=== PATIENT | female | born 1990 | race Caucasian/White ===

== ENCOUNTER → 2022-12-31 15:18 | Outpatient (CLI) | payer MEDICAID, SELFPAY | PROVIDERS: PCP Family Medicine; Visit Provider Nurse Practitioner | DX: R07.9 Chest pain, unspecified (principal); R55 Syncope and collapse; R00.0 Tachycardia, unspecified | CPT/HCPCS: 93270 ==

== ENCOUNTER → 2023-01-16 08:26 | Day surgery (SDC) | payer MEDICAID, SELFPAY ==
[2023-01-16 09:35] VITALS: BMI 25.0
--- NOTE | 2023-01-16 10:16 | EXP.TILT ---
Findings:: REQUESTING PROVIDER: Constance Barriga INDICATION: Tachycardia with dizziness, lightheadedness, near syncope upon standing BETA BLOCKERS: None for more than a week PRE-TEST VITAL SIGNS: PROCEDURE SUMMARY:
--- NOTE | 2023-01-16 10:24 | EXP.TILT ---
Findings:: REQUESTING PROVIDER: Constance Barriga APRN INDICATION: Tachycardia with dizziness, lightheadedness, near syncope upon standing BETA BLOCKERS: Discontinued more than one week ago PRE-TEST VITAL SIGNS (supine): HR 75 and sinus rhythm, BP 123/63, O2sats 99% PROCEDURE SUMMARY: Patient was prepped per protocol, IV started, connected to heart, blood pressure and oxygen saturation monitors. Safety straps were applied. She was then tilted upright at 70 degrees for a total of 30 minutes. After 15 minutes upright she complained of her legs feeling weak but denied any significant dizziness or lightheadedness and had no syncope or near syncope. Immediately upon being placed upright her heart rate increased to 104 bpm (29 beat increase from the supine position). Five minutes after being upright her heart rate was 103 bpm. For the remainder of her time in the upright position her heart rate varied from a low of 91 bpm to a high of 103 bpm. After being returned to the supine position, her heart rate immediately dropped to 80 bpm and then after 10 minutes supine was 71 bpm. She remained in a sinus rhythm throughout the procedure. Her blood pressure varied minimally during the test with the highest being 129/73 immediately upon being placed upright, and the lowest being 116/75 after 20 minutes upright. Ten minutes after being returned to the supine position her BP was 118/60. O2sats remained in the high 90s throughout. CONCLUSIONS: This patient's 70 degree upright TTT does not meet the strict criteria for POTS (HR increase of >30 bpm or HR >120 bpm after standing and accompanied by symptoms). However, her history and heart rate data that she has collected on her phone would certainly suggest a diagnosis of POTS. It is possible that being upright at 90 degrees would cause a greater increase in heart rate and symptoms, so clinical correlation is advised.
== END ==
PROVIDERS: PCP Family Medicine; Visit Provider Nurse Practitioner
DX: R00.0 Tachycardia, unspecified (principal); R07.9 Chest pain, unspecified; R55 Syncope and collapse
CPT/HCPCS: 93306

== ENCOUNTER → 2023-04-30 15:43 | Outpatient (CLI) | payer MEDICAID, SELFPAY ==
[2023-04-30 17:46] LABS: Alanine Aminotransferase 20 U/L (12-78); Albumin Level 4.8 g/dl (3.5-5.0); Alkaline Phosphatase 59 U/L (38-126); Anion Gap 15.2 mEq/L (5-15); Aspartate Amino Transferase 26 U/L (14-36); Bilirubin,Indirect 0.3 mg/dL (0.0-0.9); Bilirubin,Total 0.3 mg/dl (0.2-1.3); Bilirubin,Unconjugated 0.4 mg/dL (0.0-1.1); Blood Urea Nitrogen 9 mg/dl (7-17); Calcium 9.6 mg/dl (8.4-10.2); Carbon Dioxide 26 mmol/L (22.0-30.0); Chloride 103 mmol/L (98-107); Estimated Glomerular Filt Rate 82 ml/min (>60); GFR (African American) 99 ML/MIN (>60); Glucose 90 mg/dl (74-100); Potassium 4.2 mmoL/L (3.5-5.1); Sodium 140 mmol/L (136-145); Total Protein,Serum 7.9 g/dl (6.3-8.2)
== END ==
PROVIDERS: PCP Family Medicine; Visit Provider Internal Medicine
DX: R07.9 Chest pain, unspecified (principal); R00.0 Tachycardia, unspecified; R55 Syncope and collapse
CPT/HCPCS: 36415; 80048; 80076; 83735

== ENCOUNTER → 2023-05-07 12:17 | Outpatient (CLI) | payer MEDICAID, SELFPAY ==
[2023-05-07 14:16] LABS: Alanine Aminotransferase 20 U/L (12-78); Albumin Level 4.6 g/dl (3.5-5.0); Alkaline Phosphatase 63 U/L (38-126); Anion Gap 14.6 mEq/L (5-15); Aspartate Amino Transferase 22 U/L (14-36); Bilirubin,Total 0.2 mg/dl (0.2-1.3); Blood Urea Nitrogen 12 mg/dl (7-17); Calcium 9.7 mg/dl (8.4-10.2); Carbon Dioxide 26 mmol/L (22.0-30.0); Chloride 105 mmol/L (98-107); Estimated Glomerular Filt Rate 82 ml/min (>60); GFR (African American) 99 ML/MIN (>60); Glucose 96 mg/dl (74-100); Magnesium 1.8 mg/dl (1.6-2.3); Potassium 4.6 mmoL/L (3.5-5.1); Sodium 141 mmol/L (136-145); Total Protein,Serum 7.5 g/dl (6.3-8.2)
[2023-05-07 14:31] LABS: Bilirubin,Unconjugated 0.4 mg/dL (0.0-1.1)
[2023-05-07 17:10] LABS: Bilirubin,Indirect 0.3 mg/dL (0.0-0.9)
== END ==
PROVIDERS: Internal Medicine; PCP Family Medicine; Visit Provider Physician Assistant
DX: R06.00 Dyspnea, unspecified (principal); R42 Dizziness and giddiness; R55 Syncope and collapse; R00.0 Tachycardia, unspecified; G90.A Postural orthostatic tachycardia syndrome [POTS]
CPT/HCPCS: 36415; 80048; 80076; 83735

== ENCOUNTER → 2023-05-10 07:39 | Outpatient (CLI) | payer MEDICAID, SELFPAY ==
[2023-05-10 09:13] LABS: Anion Gap 14.4 mEq/L (5-15); Blood Urea Nitrogen 14 mg/dl (7-17); Calcium 9.3 mg/dl (8.4-10.2); Carbon Dioxide 26 mmol/L (22.0-30.0); Chloride 106 mmol/L (98-107); Estimated Glomerular Filt Rate 82 ml/min (>60); GFR (African American) 99 ML/MIN (>60); Glucose 97 mg/dl (74-100); Potassium 4.4 mmoL/L (3.5-5.1); Sodium 142 mmol/L (136-145)
== END ==
PROVIDERS: PCP Family Medicine; Visit Provider Internal Medicine
DX: G90.A Postural orthostatic tachycardia syndrome [POTS] (principal); R00.0 Tachycardia, unspecified; R06.00 Dyspnea, unspecified; R42 Dizziness and giddiness; R55 Syncope and collapse
CPT/HCPCS: 36415; 80048; 82533; 83520

== ENCOUNTER → 2023-05-13 09:12 | Outpatient (CLI) | payer MEDICAID, SELFPAY ==
[2023-05-14 12:45] LABS: Sodium, Urine 72 mmol/L (Not Estab.); Sodium, Urine 94 mmol/24 hr (39-258)
[2023-05-23 09:23] LABS: Miscellaneous Test SEE COMMENTS
== END ==
PROVIDERS: Visit Provider Internal Medicine
DX: R06.00 Dyspnea, unspecified (principal); R42 Dizziness and giddiness; R55 Syncope and collapse; R00.0 Tachycardia, unspecified; G90.A Postural orthostatic tachycardia syndrome [POTS]
CPT/HCPCS: 36415; 82533; 83520; 84300